=== PATIENT | male | born 1945 | race Caucasian/White ===

== ENCOUNTER 2018-05-25 05:02 | Inpatient (IN) | payer MEDICARE ==
[~2018-05-25] VITALS: Ht 180.3 cm; Wt 98.0 kg
[~2018-05-25 05:02] MED LIST: AMBIEN 10 MG TA10 MG PO; ASPIRIN81 M2 PO; CELEXA40 MG PO; COREG CR80 MG PO; DIOVAN160 MG PO; FISH OIL-OMEGA1 EACH PO; LASIX 20 MG TAB20 MG PO; METFORMIN HCL500 M2 PO; MULTIVITAMINS1 EAC7 PO; NITROSTAT0.4 MG SL; PLAVIX 75 MG TA75 MG PO; TRILIPIX135 MG PO; VITAMIN B-12500 MCG PO; VITAMIN B-650 M1 PO; VITAMIN E400 UNI7 PO; VYTORIN 10-401 EACH PO
[2018-05-25 05:06] VITALS: BP 169/100
[2018-05-25 05:41] LABS: ABSOLUTE BASOPHILS 0.1 thou/uL (0.0-0.2); ABSOLUTE EOSINOPHILS 0.1 thou/uL (0.0-0.7); ABSOLUTE LYMPHOCYTES 1.9 thou/uL (0.8-5.3); ABSOLUTE MONOCYTES 0.3 thou/uL (0.0-1.2); ABSOLUTE NEUTROPHILS 2.4 thou/uL (1.6-8.1); BASOPHILS 1.4 %; EOSINOPHILS 1.5 %; HEMATOCRIT 39.8 % (42.0-52.0); HEMOGLOBIN 13.6 gm/dL (14.0-18.0); LYMPHOCYTES 40.1 %; MCH 34.3 pg (26.0-34.0); MCHC 34.3 g/dL (28.0-37.0); MONOCYTES 6.6 %; MPV 7.6 fl. (7.2-11.1); NUCLEATED RBCS 0 /100WBC; PLATELET COUNT* 197 thou/uL (150-400); POLYS 50.4 %; RBC 3.98 mil/uL (4.50-6.00); RDW-CV 13.9 % (10.5-14.5); WBC 4.8 thou/uL (4.0-11.0)
[2018-05-25 05:48] LABS: CALCIUM 8.8 mg/dL (8.5-10.1); CREATININE 0.8 mg/dL (0.6-1.3); POTASSIUM 3.3 mmol/L (3.5-5.1)
[2018-05-25 06:06] LABS: ALBUMIN 3.5 g/dL (3.4-5.0); TOTAL BILIRUBIN 0.7 mg/dL (<0.1-1.0); TOTAL PROTEIN 8.2 g/dL (6.4-8.2); TROPONIN-I LEVEL 0.11 ng/mL (<0.06)
[2018-05-25 07:04] LABS: URINE BILIRUBIN NEGATIVE (Negative); URINE BLOOD NEGATIVE (Negative); URINE CLARITY CLEAR; URINE COLOR YELLOW; URINE GLUCOSE-RANDOM TRACE (Negative); URINE KETONES NEGATIVE (Negative); URINE LEUKOCYTES-REFLEX NEGATIVE (Negative); URINE NITRITE-REFLEX NEGATIVE (Negative); URINE PROTEIN NEGATIVE (Negative); URINE UROBILINOGEN 0.2 E.U./dl (0.2-1.0)
--- NOTE | 2018-05-25 07:18 | NUR ---
PT REPORTS SOME CHEST DISCOMFORT. DR PATINO NOTIFIED, ORDERS RECIEVED
[2018-05-25 07:45] VITALS: BP 156/100
[2018-05-25 07:50] VITALS: BP 168/102
--- NOTE | 2018-05-25 10:26 | NUR ---
RECEIVED REPORT FROM EGRARD IN ED AND ASSUMED CARE OF PT @ 4874.PT IS A/OX4,BP ELEVATED @ 156/100.TRACING SR WITH 1ST DEGREE ON THE MONITOR.LUNG SOUNDS ARE CLEAR.LAST BM WAS YESTERDAY.IV PATENT AND SALINE LOCKED.ELECTROLYTE PROTOCOL STARTED.PT IS CALM AND COOPERATIVE WITH NO C/O PAIN BUT DOES HAVE NAUSEA.MEDICATIONS GIVEN WITH RELIEF.AT TIME OF ASSESSMENT.PT IS UP WITH SBA ASSIST TO BATHROOM.PT LEFT RESTING IN BED WITH CALL LIGHT AND FAL LPRECAUTIONS IN PLACE.WILL CONTINUE TO MONITOR.ADVANCED DIRECTIVE PAPERWORK GIVEN TO PT.
[2018-05-25 12:00] VITALS: BP 157/98
--- NOTE | 2018-05-25 12:12 | EKG ---
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 : 1945 Requested By: Dax Jordan Order Number: [id number] MD: Kristopher Wallace Measurements Intervals [place] Rate: 102 P: 34 IN: 216 QRS: -20 QRSD: 100 T: -34 QT: 367 QTc: 479 Interpretive Statements Sinus tachycardia Prolonged IN interval Inferior infarct, age indeterminate Compared to ECG 09/22/2013 22:07:52 Sinus rhythm no longer present Myocardial infarct finding still present Electronically Signed On 05-25-2018 12:11:50 CDT by Kristopher Wallace [email or web address] <ELECTRONICALLY SIGNED> By: Kristopher Wallace MD, FAC 05/25/18 1211 0519 0519 Kristopher Wallace MD, [facility] /EPI
--- NOTE | 2018-05-25 12:13 | EKG ---
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
--- NOTE | 2018-05-25 15:44 | NUR ---
SW met with pt to complete initial assessment, introduce self, and SW role. Pt alert, oriented. Pt lives home alone on a farm in [place]. Pt has a close friend who also lives on a farm in [place]. Pt wanted to appoint this friend to DPOA and SW provided information, reviewed with pt, pt signed DPOA/AD, 2 witnesses received, SW notarized and made copies, one on pt chart the other and the original with pt. Pt goal to return home independently. Pt does not have any DME or hx HH nor does he anticipate any dc needs. SW to follow.
[2018-05-25 16:00] VITALS: BP 153/92
--- NOTE | 2018-05-25 16:41 | NUR ---
VSS,CARDIAC MONITORING IN PLACE WITH NO CHANGES.PT NOW ON ROOM AIR.NO C/O CHEST PAIN OR NAUSEA.IV PATENT AND SALINE LOCKED.PT INFORMED OF PLAN OF CARE AND COMMUNICATES UNDERSTANDING.PT IS UP WITH SBA ASSIST TO THE BATHROOM.HOURLY ROUNDING COMPLETED FOR PT SAFETY.CALL LIGHT AND FALL PRECAUTIONS IN PLACE.WILL CONTINUE TO MONITOR.ADVANCED DIRECTIVE SET UP WITH CASE MANAGEMENT.
[2018-05-25 20:00] VITALS: BP 160/87
[2018-05-26] VITALS: BP 140/87
--- NOTE | 2018-05-26 03:40 | NUR ---
ASSUMED PT CARE AT 1930. ASSESSMENT COMPLETED CHARTED. ABLE TO MAKE NEEDS KNOWN. UP WITH STANDBY, C/O DIZZINESS AT TIMES, C/O NAUSEA ONCE THIS SHIFT, NO NEED FOR ZOFRAN. NO C/O PAIN. WILL CONTINUE TO MONITOR.
[2018-05-26 04:00] VITALS: BP 157/90
[2018-05-26 08:00] VITALS: BP 165/96
[2018-05-26 11:03] VITALS: BP 165/96
--- NOTE | 2018-05-26 12:01 | NUR ---
ORDER RECEIVED TO DISHCARGE PATIENT HOME TO SELF CARE. MED REC, MEDICATION EDUCATION, STROKE EDUCATION, ADN NEED FOR FOLLOW UP APPOINTMENTS COVERED AND STATED ZAS UNDERSTOOD BY PATIENT. IV AND TELEMETRY PACK REMOVED. HOURLY ROUNDING COMPLETED FOR PATIENT SAFETY. PATIENT CHOSE TO AMBULATE TO AWAITING CAR BY HOSPITAL STAFF. DC TIME OF 11:45.
--- NOTE | 2018-05-29 15:13 | CON ---
[address] [address] CONSULTATION Name: MAGDALENO NARAYANEN Room: [address] IN M.R.#: [id number] Admission: 05/25/18 Attend Phys: Amado Ribeiro Discharge: 05/26/18 Date of : 45 Report #: [id number] THIS REPORT FOR: //name// CC: Jacklyn Neri DO oYsef Conner DATE OF SERVICE: 05/25/2018 HISTORY OF PRESENT ILLNESS: The patient is a 72-year-old single white male who I was asked to see in the hospital today because of an abnormal troponin. The patient has an extensive and complicated past medical history. Unfortunately, none of his old records are available here at [place]. 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 He notes that in 2004 he presented with myocardial infarction and required placement of 5 coronary stents in [place]. He then moved from [place] to a farm outside [place], [place] about 15 years ago. About a year after his myocardial infarction, he underwent elective implantation of a defibrillator at [facility]. He does note that about a year later he had to have a lead repositioned. He has done well since that time. He is followed by Dr. Latif, a lens blocker at [place]. He last saw Dr. Latif several months ago. He apparently had a stress test at that time. He does have his defibrillator checked from home with a transmitter. He denies recent chest pain, increased shortness of breath, palpitations, syncope, discharges of defibrillator. Recently, he has been in [place] for about 9 days. Yesterday, he flew back from [place] to [place]. His friend picked him up at the airport about 8:00. They then went out to dinner. The patient drove home. He woke up about 4:00 in the morning today complaining of lightheadedness, nausea. He vomited several times. He did have some chest pressure. He denied the pain radiating down his arms. He had no fever. There was no discharge of his defibrillator. Denied any shortness of breath. He came to [place]. He was evaluated and admitted. I was asked to see him for further evaluation and treatment. He denied any blood in his vomit or diarrhea. No one else who ate at the restaurant was sick that he knows of. PAST MEDICAL HISTORY: Otherwise significant for previous resection for colon cancer, appendectomy, hypertension, diabetes, hyperlipidemia. MEDICATIONS: Consist of Diovan, Coreg, Plavix, aspirin, Celexa, Vytorin, metformin. ALLERGIES: He has no known drug allergies. FAMILY HISTORY: Positive for heart disease. 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 Quit smoking years ago. Does drink [place] [address] CONSULTATION Name: MAGDALENO NARAYAN Room: [address] IN [facility]#: [id number] Admission: 05/25/18 Attend Phys: Amado Ribeiro Discharge: 05/26/18 Date of : 45 Report #: [id number] REVIEW OF SYSTEMS: He has had no history of stroke, asthma. He had a fatty liver in the past, had a liver biopsy. No history of kidney disease, psychiatric illness or chronic skin condition. PHYSICAL EXAMINATION: GENERAL: Revealed an elderly male, lying in bed, he appeared in no acute distress. VITAL SIGNS: He had a blood pressure of 160/90, pulse was 105 on admission. He was afebrile. HEENT: He is anicteric. Conjunctivae pink. Mucous membranes moist. NECK: Veins nondistended. No carotid bruits. CHEST: Clear to auscultation. CARDIAC: Regular rate and rhythm. No significant murmur. ABDOMEN: Soft, mildly tender. EXTREMITIES: Had no edema. Posterior tibial pulse 2+ bilaterally. SKIN: Warm, dry. NEUROLOGIC: Nonfocal. DIAGNOSTIC DATA: His ECG showed a sinus rhythm, evidence of previous inferior infarction, nonspecific T-wave changes. His workup in the Emergency Room today, he had portable chest x-ray that showed normal heart size, clear lung mcginnis. LABORATORY DATA: Sodium 139, creatinine 0.8, glucose 188, alkaline phosphatase is 131, SGPT 146, SGOT 134. His troponin was 0.11. BNP 253, white blood cell count 4.8, hemoglobin 13.6. Urinalysis negative for ketones, negative for protein, negative for leukocytes. IMPRESSION AND RECOMMENDATIONS: 1. Nausea and vomiting. Suspect gastroenteritis. 2. Elevated liver function studies. The patient had a previous liver biopsy. 3. Chest pressure. History of coronary artery stenting. Minimal elevation of troponin. Recommend no further cardiac workup at this time. Would attempt to obtain the records from his lens blocker at [facility]. 4. Previous implantation of defibrillator. No recent discharges. 5. Cardiomyopathy. The patient is on a beta divine and ARB. 6. Diabetes. 7. Hypertension. 8. Hyperlipidemia. The patient is on a statin drug. 9. History of colon cancer. <ELECTRONICALLY SIGNED> By: Kristopher Wallace MD, FACC 05/29/18 1513 0920 [id number] Aries Wallace MD, FACC /nt
== END 2018-05-26 11:50 | disposition home or self-care (01) | DRG 392 ==
LOC: M.ERS 05:02 → M.TBA-ER 06:10 → M.2W 06:10
PROVIDERS: Emergency Medicine Emergency Medical Services; ADMIT Internal Medicine
DX: K52.9 Noninfective gastroenteritis and colitis, unspecified (principal); I42.9 Cardiomyopathy, unspecified; E11.9 Type 2 diabetes mellitus without complications; I50.9 Heart failure, unspecified; E78.00 Pure hypercholesterolemia, unspecified; E78.5 Hyperlipidemia, unspecified; I25.10 Atherosclerotic heart disease of native coronary artery without angina pectoris; R74.0 Nonspecific elevation of levels of transaminase and lactic acid dehydrogenase [LDH]; I11.0 Hypertensive heart disease with heart failure; Z82.49 Family history of ischemic heart disease and other diseases of the circulatory system; Z87.891 Personal history of nicotine dependence; Z95.810 Presence of automatic (implantable) cardiac defibrillator; I25.2 Old myocardial infarction; Z95.5 Presence of coronary angioplasty implant and graft; Z85.038 Personal history of other malignant neoplasm of large intestine; Z90.49 Acquired absence of other specified parts of digestive tract; Z83.3 Family history of diabetes mellitus; Z79.82 Long term (current) use of aspirin; Z79.899 Other long term (current) drug therapy

== ENCOUNTER → 2019-05-23 | Day surgery (SDC) | payer MEDICARE ==
[~2019-05-23] MED LIST changes: +AMLODIPINE BESY10 MG PO; +CO Q-10100 MG PO; +COREG25 MG PO; +LIPITOR40 MG PO; +MAGOX 400400 MG PO; +VITAMIN D1000 UNI1 PO
--- NOTE | ~2019-05-23 | PROC ---
[address] [place] [address] PROCEDURE REPORT Name: MAGDALENO NARAYAN Room: [facility].#: [id number] Admission: 05/23/19 Attend Phys: Eric Sam MD Discharge: Date of : 45 Report #: [id number] THIS REPORT FOR: //name// For GI report, please see the Provation report in Perceptive 7 content. By: 08Medical Records Staff JOHNATHAN /[place]
[2019-05-23 09:10] LABS: HEMATOCRIT 40.2 % (42.0-52.0); HEMOGLOBIN 14.1 gm/dL (14.0-18.0); MCH 34.7 pg (26.0-34.0); MCHC 35.2 g/dL (28.0-37.0); MCV 98.7 fL (80.0-100.0); MPV 7.7 fl. (7.2-11.1); RBC 4.08 mil/uL (4.50-6.00); RDW-CV 13.2 % (10.5-14.5); WBC 4.7 thou/uL (4.0-11.0)
[2019-05-23 09:27] LABS: CALCIUM 9.5 mg/dL (8.5-10.1); CREATININE 0.9 mg/dL (0.6-1.3); POTASSIUM 3.2 mmol/L (3.5-5.1)
[2019-05-23 09:31] LABS: ALBUMIN 3.4 g/dL (3.4-5.0); TOTAL BILIRUBIN 1.1 mg/dL (<0.1-1.0); TOTAL PROTEIN 8.2 g/dL (6.4-8.2)
--- NOTE | 2019-05-23 12:42 | EKG ---
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 Wyatt Cox MD, [facility] /EPI
--- NOTE | 2019-05-26 18:06 | PATH ---
[facility] [address] [place] [address] PATHOLOGY RPT PROCEDURE Name: MAGDALENO NARAYAN Room: [facility].R.#: [id number] Admission: 05/23/19 Date of : 45 Discharge: Report #: [id number] Path Case #: [id number] [facility] Accession Number: [id number] . 01 Material submitted: . PART A: ileum - ILEAL POLYPS PART B: colon - TRANSVERSE COLON POLYP. Modifiers: transverse . 01 Clinical history: . Personal history of colon cancer. . 02 Diagnosis: A. Ileal polyps: - Polypoid active ileitis and hyperplastic lymphoid follicles (Peyer's patches), negative for granulomas and dysplasia/adenomatous change. . B. Transverse colon polyp: - Tubular adenoma, negative for high-grade dysplasia. ([facility]; 05/26/2019) S 05/26/2019 1435 Local . 02 Comment: The ileal polyps tissues (A) do not show definite crypt distortion or basal lymphoplasmacytosis to raise the suspicion of Crohn's disease, although this should be considered in the clinical differential. ([facility]; 05/26/2019) . 02 Electronically signed: . Sung Raphael MD, Pathologist NPI- [id number] . 01 Gross description: . A. Received in formalin labeled "Magdaleno Narayan, ileal polyps" is a 0.8 x 0.2 x 0.1 cm aggregate of molina-brown mucosa fragments. The specimen is submitted in A1. . B. Received in formalin labeled "Magdaleno Narayan, transverse colon polyp" is a 0.4 x 0.3 x 0.1 cm fragment of molina-brown mucosa. The specimen is submitted in B1. ([facility]; 05/25/2019) [facility] 05/25/2019 1053 Local . 02 Pathologist provided ICD-10: K52.9, D12.3 . 02 CPT . 644477, 524773 Specimen Comment: A courtesy copy of this report has been sent to Specimen Comment: [phone], , [place] [address] PATHOLOGY RPT PROCEDURE Name: MAGDALENO NARAYAN Room: [facility]#: [id number] Admission: 05/23/19 Date of : 45 Discharge: Report #: [id number] Path Case #: [id number] Specimen Comment: Report sent to ,DR ALMENDAREZ / DR FISHER Performed at: [address], [place], [place] [id number] MD Davide Gallegos MD Phone: [phone] Performed at: 02 [facility] [address], [place], [place] [id number] MD Sung Raphael MD Phone: [phone]
== END | disposition home or self-care (01) ==
LOC: M.SUR 08:43
PROVIDERS: Internal Medicine Gastroenterology
DX: Z12.11 Encounter for screening for malignant neoplasm of colon (principal); Z85.038 Personal history of other malignant neoplasm of large intestine; Z86.010 Personal history of colon polyps; D12.3 Benign neoplasm of transverse colon; K52.9 Noninfective gastroenteritis and colitis, unspecified; K63.89 Other specified diseases of intestine; D13.39 Benign neoplasm of other parts of small intestine; K57.30 Diverticulosis of large intestine without perforation or abscess without bleeding; I10 Essential (primary) hypertension; E11.9 Type 2 diabetes mellitus without complications; Z98.890 Other specified postprocedural states; Z98.0 Intestinal bypass and anastomosis status; Z79.899 Other long term (current) drug therapy; Z79.82 Long term (current) use of aspirin

== ENCOUNTER 2020-01-01 08:22 | Emergency (ER) | payer MEDICARE ==
[~2020-01-01] VITALS: Ht 177.8 cm; Wt 97.5 kg
[2020-01-01] MEDS ORDERED: FLONASE 0.05%50 MCG NASAL (08:45)
[2020-01-01] MEDS ORDERED: ASA81BEC PO (08:45)
[2020-01-01 09:43] LABS: HEMATOCRIT 35.9 % (42.0-52.0); HEMOGLOBIN 12.3 gm/dL (14.0-18.0); MCH 32.9 pg (26.0-34.0); MCHC 34.3 g/dL (28.0-37.0); MCV 95.7 fL (80.0-100.0); MPV 7.6 fl. (7.2-11.1); NUCLEATED RBCS 0 /100WBC; PLATELET COUNT* 221 thou/uL (150-400); RBC 3.75 mil/uL (4.50-6.00); RDW-CV 14.4 % (10.5-14.5); WBC 5.4 thou/uL (4.0-11.0)
[2020-01-01 09:50] LABS: CALCIUM 8.5 mg/dL (8.5-10.1); CREATININE 0.7 mg/dL (0.6-1.3); POTASSIUM 3.8 mmol/L (3.5-5.1)
[2020-01-01 09:53] LABS: APTT 27.1 Seconds (25.0-31.3); INR 1.1; PROTIME 11.7 Seconds (9.20-11.50)
[2020-01-01 09:55] LABS: ALBUMIN 3.2 g/dL (3.4-5.0); TOTAL BILIRUBIN 1.3 mg/dL (<0.1-1.0); TOTAL PROTEIN 8.4 g/dL (6.4-8.2)
[2020-01-01 10:15] LABS: ABSOLUTE EOSINOPHILS 0.4 thou/uL (0.0-0.7); ABSOLUTE LYMPHOCYTES 2.4 thou/uL (0.8-5.3); ABSOLUTE MONOCYTES 0.4 thou/uL (0.0-1.2); ABSOLUTE NEUTROPHILS 2.1 thou/uL (1.6-8.1); PLATELET ESTIMATE ADEQUATE
[2020-01-01 10:40] LABS: URINE BLOOD NEGATIVE (Negative); URINE CLARITY CLEAR; URINE COLOR YELLOW; URINE GLUCOSE-RANDOM NEGATIVE (Negative); URINE KETONES NEGATIVE (Negative); URINE LEUKOCYTES-REFLEX NEGATIVE (Negative); URINE NITRITE-REFLEX NEGATIVE (Negative); URINE PROTEIN NEGATIVE (Negative); URINE UROBILINOGEN 0.2 E.U./dl (0.2-1.0)
[2020-01-01] MEDS ORDERED: ULTRAM 50MG TAB50 MG PO (10:49)
[2020-01-01 10:52] LABS: ICTOTEST (BILI CONFIRMATORY) Negative (Negative); URINE BILIRUBIN 1+ (Negative)
[2020-01-01 11:10] VITALS: BP 137/89
== END 2020-01-01 11:10 | disposition home or self-care (01) ==
LOC: M.ERS 08:22
PROVIDERS: Personal Emergency Response Attendant
DX: S40.021A Contusion of right upper arm, initial encounter (principal); I11.0 Hypertensive heart disease with heart failure; I50.9 Heart failure, unspecified; E78.00 Pure hypercholesterolemia, unspecified; E11.9 Type 2 diabetes mellitus without complications; Z95.5 Presence of coronary angioplasty implant and graft; Z85.038 Personal history of other malignant neoplasm of large intestine